=== PATIENT | female | born 1950 | race Caucasian/White ===

== ENCOUNTER 2020-10-26 12:00 | Outpatient (REF) | payer OTHER, SELFPAY ==
--- NOTE | 2020-10-26 12:04 | MM_ITS ---
EXAMINATION: MM SCREENING DIGITAL BREAST TOMOSYNTHESIS, BILATERAL CLINICAL INFORMATION: Screening. Asymptomatic. The lifetime risk of breast cancer based on the Tyrer-Cuzick Model is 4%. COMPARISON: Mammography: 06/10/2019, 05/23/2018, 05/21/2017 TECHNIQUE: Digital breast tomosynthesis is performed in both the craniocaudal and mediolateral oblique views along with computer-aided detection (CAD). Synthesized 2D images are generated from the tomosynthesis. FINDINGS: There are scattered areas of fibroglandular density (ACR BI-RADS breast composition Category b). Fibronodular parenchymal pattern is similar to previous exams. There is no interval developing density or significant mass or architectural abnormality. Dominant nodule central inner right breast on CC view and posterior outer left breast are stable. No abnormal calcifications. The axilla and skin contours are unremarkable. No significant changes. MM/MM tomosynthesis screening BI IMPRESSION: No significant changes from prior studies. ASSESSMENT: BI-RADS 2: Benign RECOMMENDATION: Routine annual mammography screening. This patient's information was entered into a reminder system with a target due date for their next mammogram.
== END 2020-10-26 12:01 | disposition home or self-care (01) ==
LOC: HO.MAMMO 12:00
PROVIDERS: PCP Internal Medicine; Visit Provider Internal Medicine
DX: Z12.31 Encounter for screening mammogram for malignant neoplasm of breast (principal)
CPT/HCPCS: 77063; 77067

== ENCOUNTER 2020-11-14 09:50 | Outpatient (REF) | payer OTHER, SELFPAY ==
[2020-11-14 11:39] LABS: Alanine Aminotransferase 18 U/L (0-31); Albumin Level 4.6 g/dL (3.5-5.0); Alkaline Phosphatase 79 U/L (39-117); Anion Gap 15 (12-20); Aspartate Amino Transferase 15 U/L (5-31); Bilirubin Total 0.4 mg/dL (0.0-1.0); Blood Urea Nitrogen 23 mg/dL (9-16); Carbon Dioxide 28 mmol/L (22-29); Chloride 99 mmol/L (96-108); Cholesterol 171 mg/dL; Estimated Glomerular Filt Rate > 60; Glucose Fasting 137 mg/dL (60-99); HDL Cholesterol 60 mg/dL; LDL Cholesterol Calculated 83 mg/dl; Potassium 4.5 mmol/l (3.3-5.1); Sodium 137 mmol/L (135-145); Total Protein 7.6 g/dL (6.5-8.0); Triglycerides 141 mg/dL
[2020-11-14 12:05] LABS: Estimated Average Glucose 137 mg/dL; Hemoglobin A1c % 6.4 %
== END 2020-11-14 09:51 | disposition home or self-care (01) ==
LOC: HO.HMGCLDS 09:50
PROVIDERS: PCP Internal Medicine; Visit Provider Internal Medicine
DX: Z00.00 Encounter for general adult medical examination without abnormal findings (principal); E78.5 Hyperlipidemia, unspecified; E11.9 Type 2 diabetes mellitus without complications; R21 Rash and other nonspecific skin eruption; K12.1 Other forms of stomatitis
CPT/HCPCS: 80053; 80061; 82043; 83036

== ENCOUNTER 2021-02-24 | Outpatient (REF) | payer MEDICARE, SELFPAY ==
[2021-02-24 11:27] LABS: Alanine Aminotransferase 20 U/L (0-31); Albumin Level 4.4 g/dL (3.5-5.0); Alkaline Phosphatase 89 U/L (39-117); Anion Gap 14 (12-20); Aspartate Amino Transferase 11 U/L (5-31); Bilirubin Total 0.5 mg/dL (0.0-1.0); Blood Urea Nitrogen 17 mg/dL (9-16); Calcium 9.5 mg/dL (8.4-10.2); Carbon Dioxide 30 mmol/L (22-29); Chloride 98 mmol/L (96-108); Cholesterol 162 mg/dL; Estimated Glomerular Filt Rate > 60; Glucose Fasting 136 mg/dL (60-99); HDL Cholesterol 56 mg/dL; LDL Cholesterol Calculated 88 mg/dl; Potassium 4.5 mmol/L (3.3-5.1); Sodium 137 mmol/L (135-145); Total Protein 7.3 g/dL (6.5-8.0); Triglycerides 92 mg/dL
[2021-02-24 11:41] LABS: Hematocrit 36.2 % (37-47); Hemoglobin 11.4 g/dl (12.0-16.0); Mean Corpuscular HGB Conc 31.5 g/dl (31.0-35.0); Mean Corpuscular Hemoglobin 25.3 pg (27.0-33.0); Mean Corpuscular Volume 80.4 fL (80-98); Mean Platelet Volume 9.8 fL (9.4-12.3); Platelet Count 264 X10*3/uL (160-400); Red Cell Distribution Width 14.3 % (11.0-16.0); White Blood Count 9.5 X10*3/uL (4.8-10.8)
[2021-02-24 11:47] LABS: Estimated Average Glucose 126 mg/dL
[2021-02-24 12:28] LABS: Creatinine Urine 26.23 mg/dL; Microalbumin Urine < 5.0 mg/L
== END 2021-02-24 00:01 ==
LOC: HO.LAB
PROVIDERS: Visit Provider Internal Medicine
DX: C06.9 Malignant neoplasm of mouth, unspecified (principal); E78.5 Hyperlipidemia, unspecified; I10 Essential (primary) hypertension; E11.9 Type 2 diabetes mellitus without complications; Z86.73 Personal history of transient ischemic attack (TIA), and cerebral infarction without residual deficits
CPT/HCPCS: 36415; 80053; 80061; 82043; 83036; 85027

== ENCOUNTER 2021-07-15 12:11 | Emergency (ER) | payer MEDICARE, SELFPAY ==
--- NOTE | ~2021-07-15 | XR_ITS ---
EXAMINATION: XR ABDOMEN KUB CLINICAL INDICATION: ET tube positioning. COMPARISON: None TECHNIQUE: AP view of the abdomen. FINDINGS: Contrast is seen within the gastric lumen through the gastric tube. There is no evidence for leak. Minimal contrast is seen within the duodenum and jejunum. There is a nonobstructive bowel gas pattern. Mild gas and stool are seen within the colon distally to the rectum. Mild to moderate multilevel degenerative changes are seen in the thoracolumbar spine. XR/XR KUB IMPRESSION: Contrast within the gastric lumen without leak consistent with proper positioning of the gastric tube.
[2021-07-15 12:25] VITALS: BP 120/62; PULSE 99; RESP 18; TEMP 36.7; O2SAT 98; BMI 26.2
--- NOTE | 2021-07-15 12:53 | ED.GENADULT ---
HPI - General Adult General Chief complaint: General Medical Stated complaint: G tube issue Time Seen by Provider: 07/15/21 12:53 Source: patient and family Mode of arrival: ambulatory Limitations: no limitations History of Present Illness HPI narrative: Patient with history of laryngeal carcinoma status post feeding tube placed 3 months ago came of accidentally around 06:00 no other complaints Related Data Home Medications Medication Instructions Recorded Confirmed albuterol sulfate 90 mcg/actuation 2 puff INHALATION Q6H PRN 09/26/20 02/22/21 aerosol inhaler (ProAir HFA) blood sugar diagnostic #10 ea 09/26/20 02/22/21 lancets 30 gauge #100 ea 09/26/20 02/22/21 Previous Rx's Medication Instructions Recorded sertraline 50 mg tablet 50 mg PO DAILY #90 tab 09/26/20 amlodipine 5 mg tablet 5 mg PO DAILY #90 tab 12/16/20 clotrimazole-betamethasone 1 See Rx Instructions TOPICAL BID 12/16/20 %-0.05 % topical cream #45 g metformin 850 mg tablet 850 mg PO BID #180 tab 02/15/21 betamethasone dipropionate 0.05 % 1 appl TOPICAL DAILY PRN #45 g 02/22/21 topical cream irbesartan 300 1 tab PO DAILY #90 tab 02/22/21 mg-hydrochlorothiazide 12.5 mg tablet simvastatin 20 mg tablet 20 mg PO BEDTIME #90 tab 02/22/21 amlodipine 10 mg tablet 10 mg PO DAILY #90 tab 06/01/21 metoprolol succinate 50 mg 50 mg PO DAILY #90 tab 06/21/21 tablet,extended release 24 hr Allergies Allergy/AdvReac Type Severity Reaction Status Date / Time No Known Allergies Allergy Verified 09/26/20 07:46 Review of Systems Review of Systems: Yes all other systems are reviewed and are negative PMFSH Past Medical History Medical History COPD (chronic obstructive pulmonary disease) Depression with anxiety Diabetes Dizziness GERD (gastroesophageal reflux disease) History of mammogram Hyperlipidemia Hypertension Multinodular goiter Oral cancer Pulmonary nodule 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 TIA (transient ischemic attack) Surgical History H/O colonoscopy History of esophagogastroduodenoscopy (EGD) Social History Social History Alcohol intake: never Advance Directives: No Advance Directives Information Provided: No Physical Exam Vital Signs: Vital Signs: Last Vital Signs Temp 98.0 F 07/15/21 12:25 Pulse 99 07/15/21 12:25 Resp 18 07/15/21 12:25 BP 120/62 07/15/21 12:25 Pulse Ox 98 07/15/21 12:25 Body Mass Index 26.2 Const: General: well developed and alert HENMT: Head: Yes normocephalic and Yes atraumatic Eyes: General: appearance normal, both eyes and all related structures GI: Other: Small stoma for G-tube almost closed Palpation (GI): Soft to palpation and nontender Auscultation: normal bowel sounds Procedures Feeding Tube Replacement Type of Tube: gastrostomy Insertion Site Prior to Procedure: clean Tube Used for Reinsertion: Yepez Cambodian Tube Size (F): 16 Balloon size (mL): 10 Verification of Placement: gastrografin injection Tube Secured by: tape/dressing Patient Tolerated Procedure: well Medical Decision Making MDM Narrative Medical decision making narrative: Patient with small tight stoma opening different sizes of straight catheterization were used to dilate the opening starting from 10 Cambodian till 18, unable to put the G-tube because of tight opening hands 16 Cambodian Yepez catheter was placed. Gastrografin test shows right position of the tube Discharge Plan Discharge Clinical Impression: Encounter for feeding tube placement Patient Disposition: Home, Self-Care Instructions: PEG Tube Insertion (DC) Additional Instructions: Care as advised follow-up with a machine lead burner Prescriptions: No Action metformin 850 mg tablet 850 mg PO BID Qty: 180 RF: 3 simvastatin 20 mg tablet 20 mg PO BEDTIME Qty: 90 RF: 3 amlodipine 10 mg tablet 10 mg PO DAILY Qty: 90 RF: 0 metoprolol succinate 50 mg tablet extended release 24 hr 50 mg PO DAILY Qty: 90 RF: 3 (DME) lancets 30 gauge misc See Rx Instructions ea .ROUTE BID Qty: 100 RF: 0 (DME) OneTouch Ultra Blue Test Strip Strip See Rx Instructions ea .ROUTE BID Qty: 10 RF: 0 albuterol sulfate [ProAir HFA] 90 mcg/actuation HFA aerosol inhaler 2 puff inhalation Q6H PRNRF: 0 sertraline 50 mg tablet 50 mg PO DAILY Qty: 90 RF: 2 clotrimazole-betamethasone 1-0.05 % cream See Rx Instructions topical BID Qty: 45 RF: 1 amlodipine 5 mg tablet 5 mg PO DAILY Qty: 90 RF: 2 betamethasone dipropionate 0.05 % cream 1 appl topical DAILY PRN (Reason: skin irritation) Qty: 45 RF: 3 irbesartan-hydrochlorothiazide 300-12.5 mg tablet 1 tab PO DAILY Qty: 90 RF: 3 Interventions: ED Discharge Assessment Last Done: 07/15/21 13:32 Discharge Date/Time: 07/15/21 13:33
--- NOTE | 2021-07-15 12:55 | PC.NURSE ---
dr victor at bedside to attempt g tube replacement, attempted to gain access using pvc urethral catheter starting w 12fr d/t occlusion of gtube site, tapered up to 18 fr urethral catheter and 16fr kenney able to be placed, 18 fr gtube unable to be placed d/t too flaccid to advance, [address] to serve as temporary gtube. awaiting kub to confirm placement. pt tolerated procedure well.
[2021-07-15] MEDS: Diatrizoate Meglumine, Sodium 30 ML SOLUTION PO (13:11)
== END 2021-07-15 13:33 | disposition home or self-care (01) ==
PROVIDERS: Emergency Provider Internal Medicine; PCP Internal Medicine
DX: T85.598A Other mechanical complication of other gastrointestinal prosthetic devices, implants and grafts, initial encounter (principal); E11.9 Type 2 diabetes mellitus without complications; I10 Essential (primary) hypertension; Z86.73 Personal history of transient ischemic attack (TIA), and cerebral infarction without residual deficits; Z85.21 Personal history of malignant neoplasm of larynx; Z79.899 Other long term (current) drug therapy
CPT/HCPCS: 43762; 74018; 99283; 99284

== ENCOUNTER 2021-08-16 14:48 | Outpatient (REF) | payer MEDICARE, SELFPAY ==
--- NOTE | ~2021-08-16 | XR_ITS ---
EXAMINATION: XR HIP, RIGHT CLINICAL INFORMATION: Right hip pain. COMPARISON: None TECHNIQUE: Two views of the right hip. FINDINGS: The right hip joint space is maintained normal. No visible fracture, dislocation bony erosive changes seen. The soft tissues are normal. XR/XR hip RT min 2V IMPRESSION: Unremarkable right hip exam.
== END 2021-08-16 14:49 | disposition home or self-care (01) ==
LOC: HO.HMGCX 14:48
PROVIDERS: PCP Internal Medicine; Visit Provider Internal Medicine
DX: Z13.89 Encounter for screening for other disorder (principal)
CPT/HCPCS: 73502